=== PATIENT | male | born 1940 | race Caucasian/White ===

== ENCOUNTER 2020-10-07 08:42 | Outpatient (REF) | payer MEDICARE, OTHER, SELFPAY | END 2020-10-07 08:43 | disposition home or self-care (01) | LOC: HO.LAB 08:42 | PROVIDERS: Visit Provider Internal Medicine | DX: Z20.828 Contact with and (suspected) exposure to other viral communicable diseases (principal) | CPT/HCPCS: C9803; U0003 ==

== ENCOUNTER → 2020-11-27 09:58 | Outpatient (BNVA) | payer MEDICARE, OTHER, SELFPAY | PROVIDERS: PCP Internal Medicine; Visit Provider Hospitalist | DX: J44.9 Chronic obstructive pulmonary disease, unspecified (principal); R25.2 Cramp and spasm; R06.00 Dyspnea, unspecified | CPT/HCPCS: 99212 ==

== ENCOUNTER 2020-12-07 07:22 | Outpatient (REF) | payer MEDICARE, OTHER, SELFPAY ==
--- NOTE | 2020-12-07 07:25 | CT_ITS ---
EXAMINATION: CT CHEST WITHOUT CONTRAST CLINICAL INFORMATION: COPD COMPARISON: Previous chest x-ray June 2019 TECHNIQUE: Multidetector volumetric CT imaging of the chest was done. Axial MIP volume rendering provided. Sagittal and coronal reformatted images were obtained. This CT examination was performed using dose optimization techniques as appropriate, variously including the following: *Automated exposure control *Adjustment of mA and/or kV according to patient size (this includes techniques or standardized protocols for targeted exams where dose is matched to indication/reason for exam; i.e. extremities or head) *Use of iterative reconstruction technique DLP: 177 mGy-cm FINDINGS: LUNGS: Right There is a 3 mm right upper lobe nodule axial image 80 series 11. There are clustered small peribronchial 1 to 2 mm nodules in the right upper, right middle and right lower lobes or tree-in-bud appearance suggestive of airways disease. Largest pulmonary nodules are seen in the right middle lobe for example axial image 138 series 3. There is a 3 mm right lower lobe nodule axial image 133 series 11. Left: There is a 2 mm left upper lobe nodule axial image 55 series 11. There are clustered peribronchial 1 to 2 mm left upper lobe nodules or tree-in-bud suggestive of airways disease. No endobronchial or endotracheal lesion is seen. The there is increased AP dimension of the trachea, increased retrosternal airspace and flattening of the diaphragms suggestive of COPD. There is mild biapical pleural and parenchymal scarring, MEDIASTINUM: The visualized thyroid gland is unremarkable. There are small mediastinal lymph nodes. No enlarged lymph nodes are seen. The heart does not appear enlarged. There is mild coronary artery calcification. There is no pericardial effusion. PLEURA: There is no pleural effusion. No pleural mass or thickening. AXILLA: No lymphadenopathy. UPPER ABDOMEN: The liver is low in attenuation suggestive of fatty infiltration. OSSEOUS STRUCTURES: There are degenerative changes of the spine. CT/CT chest wo con IMPRESSION: COPD. Small clustered peribronchial nodules or tree-in-bud appearance suggestive of airways disease. There are several separate bilateral pulmonary nodules, largest measuring 3 mm. Mild coronary artery calcification. Fatty liver.
== END 2020-12-07 07:23 | disposition home or self-care (01) ==
LOC: HO.CT 07:22
PROVIDERS: Visit Provider Hospitalist
DX: J44.9 Chronic obstructive pulmonary disease, unspecified (principal); R06.00 Dyspnea, unspecified; C61 Malignant neoplasm of prostate
CPT/HCPCS: 71250

== ENCOUNTER → 2020-12-25 13:26 | Outpatient (BNVA) | payer MEDICARE, OTHER, SELFPAY | PROVIDERS: PCP Internal Medicine; Visit Provider Hospitalist | DX: Z13.89 Encounter for screening for other disorder (principal) | CPT/HCPCS: Q3014 ==

== ENCOUNTER → 2021-06-24 09:41 | Outpatient (BNVA) | payer MEDICARE, OTHER, SELFPAY | PROVIDERS: PCP Internal Medicine; Visit Provider Hospitalist | DX: R06.00 Dyspnea, unspecified (principal); J41.0 Simple chronic bronchitis; R91.8 Other nonspecific abnormal finding of lung field | CPT/HCPCS: 99212 ==

== ENCOUNTER 2021-12-16 07:21 | Outpatient (REF) | payer MEDICARE, OTHER, SELFPAY ==
--- NOTE | ~2021-12-16 | CT_ITS ---
EXAMINATION: CT CHEST WITHOUT CONTRAST CLINICAL INFORMATION: Pulmonary nodules. COMPARISON: CT chest 12/07/2020. TECHNIQUE: Multidetector volumetric CT imaging of the chest was done. Axial MIP volume rendering provided. Sagittal and coronal reformatted images were obtained. This CT examination was performed using dose optimization techniques as appropriate, variously including the following: *Automated exposure control *Adjustment of mA and/or kV according to patient size (this includes techniques or standardized protocols for targeted exams where dose is matched to indication/reason for exam; i.e. extremities or head) *Use of iterative reconstruction technique DLP: 166 mGy-cm FINDINGS: PRODUCTION COORDINATOR: Unremarkable. LUNGS: The lungs are well expanded without acute pneumonic process. There is a new right upper lobe 4 mm pulmonary nodule axial image 174/8, several 1 mm nodules left upper lobe axial image 165/8, a 2 mm nodule right lower lobe superior segment axial image 258/8, a 2 nodule right upper lobe axial image 261/8, a 2 mm peripheral-based nodule right upper lobe axial image 252/8, atelectatic changes lingula, tree-in-bud appearance right middle lobe peripherally-based axial image 318/8, a 3 mm nodule right lower lobe axial image 384/8, clustered 2 mm nodules right middle lobe axial image 373/8, similarly intrabronchial linear nodules left lower lobe axial image 388/8. There are punctate 1 mm calcifications seen as well. No consolidation or mass identified. MEDIASTINUM: The thyroid lobes are symmetrical and normal. The central trachea and the bronchi widely patent. Heart size and the great vessels are normal caliber. No abnormal-sized mediastinal lymph nodes or mass seen. There are trace coronary artery calcifications present. PLEURA: There is no pleural effusion. No pleural mass or thickening. AXILLA: No abnormal size inguinal lymph nodes. The chest wall is unremarkable. UPPER ABDOMEN: Visualized liver, spleen, pancreas and bilateral adrenal glands are unremarkable. There is focal calcification along the posterior gallbladder wall or radiopaque gravel. OSSEOUS STRUCTURES: No lytic or sclerotic process seen. There is mild spondylosis upper dorsal spine. CT/CT chest wo con IMPRESSION: Multiple bilateral pulmonary nodules in the range of 1-3 mm. The largest 3 mm pulmonary nodule appears stable. No abnormal mediastinal or axillary lymphadenopathy. Recommend follow-up as per Fleischner guidelines in 18-24 months. Fleischner guidelines were followed.
== END 2021-12-16 07:22 | disposition home or self-care (01) ==
LOC: HO.CT 07:21
PROVIDERS: Visit Provider Hospitalist
DX: R91.8 Other nonspecific abnormal finding of lung field (principal)
CPT/HCPCS: 71250

== ENCOUNTER → 2021-12-28 10:08 | Outpatient (BNVA) | payer MEDICARE, OTHER, SELFPAY | PROVIDERS: PCP Internal Medicine; Visit Provider Hospitalist | DX: J41.0 Simple chronic bronchitis (principal); R91.8 Other nonspecific abnormal finding of lung field; R06.00 Dyspnea, unspecified | CPT/HCPCS: 99212 ==

== ENCOUNTER 2022-12-13 11:37 | Outpatient (REF) | payer SELFPAY | END 2022-12-13 11:38 | disposition home or self-care (01) | LOC: HO.HAP 11:37 | PROVIDERS: Visit Provider Internal Medicine | DX: Z46.1 Encounter for fitting and adjustment of hearing aid (principal); H90.3 Sensorineural hearing loss, bilateral | CPT/HCPCS: 92593 ==

== ENCOUNTER → 2022-12-27 10:29 | Outpatient (BNVA) | payer MEDICARE, OTHER, SELFPAY | PROVIDERS: PCP Internal Medicine; Visit Provider Hospitalist | DX: J41.0 Simple chronic bronchitis (principal); R91.8 Other nonspecific abnormal finding of lung field; R06.00 Dyspnea, unspecified | CPT/HCPCS: 99212 ==

== ENCOUNTER 2023-07-12 07:22 | Outpatient (REF) | payer MEDICARE, OTHER, SELFPAY ==
--- NOTE | ~2023-07-12 | CT_ITS ---
EXAMINATION: CT CHEST WITHOUT CONTRAST CLINICAL INFORMATION: Pulmonary nodule follow-up. COMPARISON: 12/16/2021 TECHNIQUE: Multidetector volumetric CT imaging of the chest was done. Axial MIP volume rendering provided. Sagittal and coronal reformatted images were obtained. This CT examination was performed using dose optimization techniques as appropriate, variously including the following: *Automated exposure control *Adjustment of mA and/or kV according to patient size (this includes techniques or standardized protocols for targeted exams where dose is matched to indication/reason for exam; i.e. extremities or head) *Use of iterative reconstruction technique DLP: 151 mGy-cm FINDINGS: LUNGS AND PLEURA: Trachea and central airways are unremarkable. Mild centrilobular and paraseptal emphysema. Small scattered foci of mucous plugging of multiple bronchi are present, including within some of the peripheral airways within the lingula. Again noted are old micronodular opacities. A right upper lobe nodule described as new, 0.4 cm, on prior exam has subsequently resolved. A mucous plug or nodule in the lateral right lower lobe that measures up to 0.4 cm maximum dimension is stable compared to prior exams including 12/07/2020 (417, series 5). No new nodule. Also, no suspicious pulmonary nodule or mass. Based on Fleischner Society guidelines, no chest CT imaging follow-up is recommended. No pleural effusion or pneumothorax. CARDIOVASCULAR: The heart size is normal. No pericardial effusion. Pulmonary arteries are normal in size. There is atherosclerosis of the thoracic aorta without aneurysm. CORONARY ARTERY CALCIFICATION: Moderate coronary artery atherosclerotic calcification is present. MEDIASTINUM AND LOWER NECK: No mediastinal mass. The esophagus and thyroid gland are unremarkable. LYMPHATICS: No pathologic sized lymph nodes. UPPER ABDOMEN: Unremarkable. SKELETAL AND CHEST WALL: No suspicious bone lesions. Mild and moderate multilevel discovertebral degenerative change of the visualized cervical and thoracic spine. There is a focus of calcium deposition within region of infraspinatus tendon of the right shoulder. CT/CT chest wo IV con IMPRESSION: * Mild pulmonary emphysema. * Small scattered foci of mucous plugging, sequela of airway inflammation. No interval development of a suspicious lung nodule, mass or lymphadenopathy. * Atherosclerosis of coronary arteries and thoracic aorta without aortic aneurysm.
== END 2023-07-12 07:23 | disposition home or self-care (01) ==
LOC: HO.CT 07:22
PROVIDERS: PCP Internal Medicine; Visit Provider Hospitalist
DX: R91.8 Other nonspecific abnormal finding of lung field (principal)
CPT/HCPCS: 71250

== ENCOUNTER 2023-07-21 11:11 | Outpatient (REF) | payer SELFPAY ==
--- NOTE | 2023-07-21 11:37 | MHC.AU.HA3 ---
Hearing Instrument Follow-Up- Binaural Date of Visit: 07/21/23 Right Ear: John, Model, Color, Serial Number: Oticon OPN S1 miniRITE-R SN: [id number] Color: Silver Johnson Appointment Coordinator Repair Warranty: 08/08/2023 Appointment Coordinator Loss and Damage Warranty: 08/08/2023 Battery Size: Rechargeable Racing Car Driver/Slim Tube: 3/85 Earmold/Dome/CShell/SlimTip:8mm single gonzalez domes (no retention tail) Type of Wax Guard: miniFit ProWax Dispensed By: [employer] Date of Fittin Left Ear: John, Model, Color, Serial Number: Oticon OPN S1 miniRITE-R SN: [id number] Color: Silver Johnson Appointment Coordinator Repair Warranty: 08/08/2023 Appointment Coordinator Loss and Damage Warranty: 08/08/2023 Battery Size: Rechargeable Racing Car Driver/Slim Tube: 3/85 Earmold/Dome/CShell/SlimTip: 8mm single gonzalez domes (no retention tail) Type of Wax Guard: miniFit ProWax Dispensed By: [employer] Date of Fittin Follow-Up Summary: Replaced rechargeable batteries. Read programming into [email or web address] and recorded new rechargeable battery serial numbers and replacement date. [email or web address] now reading that batteries are in good health (prior to changing, noted poor health of batteries). Also cleaned hearing aids. Vacuumed microphones. Replaced domes and wax guards. Paid $50.00 for [employer] services and $10.00 for one package of wax guards. Recommendations: Hearing instrument follow-up or maintenance as needed. Please contact our clinic with any questions or concerns. Diagnosis Code(s): Primary Diagnosis: H90.3 Bilateral Sensorineural Hearing Loss Signature: Provider: Chester Levin, [facility]
== END 2023-07-21 11:12 | disposition home or self-care (01) ==
LOC: HO.HAP 11:11
PROVIDERS: Visit Provider Internal Medicine
DX: Z46.1 Encounter for fitting and adjustment of hearing aid (principal); H90.3 Sensorineural hearing loss, bilateral
CPT/HCPCS: 92593; V5267

== ENCOUNTER 2023-09-04 13:10 | Outpatient (AMB) | payer MEDICARE, OTHER, SELFPAY ==
[2023-09-04 13:19] VITALS: PULSE 89; O2SAT 96; BMI 28.7
--- NOTE | 2023-09-04 13:19 | A.OFFVIS_ITS ---
Intake Vital Signs 09/04/23 13:19 Height 5 ft 8 in Weight 189 lb BMI 28.7 Pulse 89 Pulse Source Pulse Oximeter Pulse Oximetry (%) 96 Oxygen Delivery Method Room Air Intake Visit Reasons: COPD Consulting Practice Manager Required: No Allergies No Known Allergies [No Known Allergies*] Allergy (Verified 09/04/23 13:20) HPI HPI Comments History of Present Illness Details The patient is an 83-year-old gentleman with a known history of prostate cancer. He has been on hormonal therapy. Since he has been on therapy he has had significant issues with have flashes and other symptoms. He was noted to have elevation is in his blood pressure and had issues with urinary retention is in UTIs. Therefore, he was placed on other medications. Since he was on the newer medications he started developing worsening have flushes but also worsening shortness of breath and at times coughing wheezing. Symptoms continue worsening he was evaluated in the ER. There he was diagnosed with bronchitis. In the meantime he tried on multiple inhalers, although, he does not remember the names. Did have pulmonary function studies which we reviewed in the office. It appears that he has a reversible obstruction although physiologically speaking the even the post bronchodilator flow still appear obstructed. 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 We will treated the same way. He has been also having some muscle spasms that have been moderate in severity. He has tried medications for the but no significant improvement. He feels that is related to the therapy for the prostate cancer. I did think we have to be careful with beta agonist because sick it worsen muscle spasms as well as it shifts the potassium from the blood to the intracellular level. 07/24/2020 The patient is here for pulmonary follow-up visit. He still complaining of some dyspnea on exertion. He is also getting the hot flashes because of the hormonal therapy he received for the prostate cancer. He has been getting also with some other urinary issues. The Symbicort was very effective for him. He is also concerned about the idea of using steroids. On examination he still having some wheezing. We did request a spirometry in the office which demonstrated no evidence of any obstructive ventilatory defect. I do think that he benefits from a bronchodilator. I will prescribe him Anoro and explained to him that he would uses once a day and does not have any steroids which is happy about. 11/27/2020 the patient is here for pulmonary follow-up visit. He still complaining of similar instances where he develops shortness of breath. Moderate severity. Associated with sweating. We tried multiple inhalers but do not helpful. Most of the beta agonist resulting significant cramping and he cannot tolerate them. We did talk about considering a muscarinic antagonist by itself which may be helpful. We know he has COPD based on his pulmonary function studies. However, he also carries a diagnosis of prostate cancer. In view of his ongoing symptoms and not getting enough response to the inhalers and no significant findings on x-rays and or on pulmonary function studies I will request a CT scan of the chest to better evaluate for any other ongoing lung parenchymal issue that may be explaining his significant shortness of breath. Again with this history of prostate cancer need to consider metastatic disease. 12/27/2022 the patient is here for [place]. Patient has been about the same. Still complaining of dyspnea on exertion. Moderate severity. He had a full cardiac workup in addition to a cardiac catheterization demonstrating some degree of coronary disease although nothing that had to be intervened on. Therefore he was placed on cardioprotective medications. He does take the Incruse daily. Sometimes he gets shortness of breath during the hot flushes although some of the time she gets shortness of breath when going up a flight of stairs. He has been using Incruse without any clear significant improvement. He has tried other inhalers in the past although he did have difficulties with adverse effects. At this time will go to go ahead and try to add Wixela to the Incruse to see if we can maximize his respiratory therapy at this time. When he returns in the fall will have him undergo pulmonary function studies. 09/04/2023 [facility] Overall the patient continues to be about the same. Still having the episodes of the hot flashes with shortness of breath and significant muscle spasms. Does not respond to respiratory inhalers. We did review his CT scan of the chest demonstrating stable pulmonary nodules and no significant changes since parenchyma. Still has a little bit of emphysema with that is not significant. She at this point the patient still has issues with a hormonal changes from his prostate cancer therapy. Will try some antispasmodic agents to see if he can help with his ease of breathing. [facility] Medical History (Updated 12/27/22 @ 20:04 by Arpan Cerna MD) Pulmonary nodules Prostate CA Dyspnea Leg cramping COPD (chronic obstructive pulmonary disease) Social History (Updated 12/28/21 @ 10:24 by DEVON Chavez) Patient Tobacco Use Status: Never used Tobacco Review of Systems Const Reports excessive sweating and Denies night sweats ENT Denies change in voice, Denies lip swelling, Denies mouth pain, Reports nasal congestion, Reports nasal discharge and Denies tongue swelling Card Denies chest pain and Reports dyspnea Resp Reports cough and Reports dyspnea GI Denies abdominal pain Musc Reports no additional complaints and Reports muscle cramps Neuro Denies Neuro-related abnormal movements Psych Denies no additional complaints Endo Reports excessive sweating Benja/Lymph Denies easy bleeding and Denies lymphadenopathy Aller/Immun Denies lip swelling and Denies tongue swelling Physical Exam Vital Signs: Last Vital Signs Pulse 89 09/04/23 13:19 Pulse Ox 96 09/04/23 13:19 Oxygen Delivery Method Room Air 09/04/23 13:19 BMI result Body Mass Index 28.7 Const General: alert Neck Neck: Yes normal visual inspection, Yes full ROM and Yes no lymphadenopathy Chest Chest palpation & inspection: normal inspection of the chest Resp Effort & Inspection: normal respiratory effort Auscultation: diminished lung sounds Cardio Rate: regular rate Rhythm: regular rhythm Heart sounds: S1 normal heart sound present and S2 normal heart sound present GI Palpation (GI): Soft to palpation and nontender Auscultation: normal bowel sounds Skin General skin exam: rashes and/or lesions noted Assessment & Plan Assessment & Plan (1) Dyspnea: Comment: Multifactorial Code(s): R06.00 - Dyspnea, unspecified Qualifiers: Dyspnea type: unspecified Qualified Code(s): R06.00 - Dyspnea, unspecified (2) COPD (chronic obstructive pulmonary disease): Code(s): J44.9 - Chronic obstructive pulmonary disease, unspecified Qualifiers: COPD type: chronic bronchitis Chronic bronchitis type: simple Qualified Code(s): J41.0 - Simple chronic bronchitis (3) Pulmonary nodules: Comment: CT scan from December 2021. Code(s): R91.8 - Other nonspecific abnormal finding of lung field Plan stopped Incruse daily stopped Wixela daily Add Baclofen BID F/U in 6-8 months Medications: New baclofen 10 mg PO BID 30 days 60 tabs 5RF Coding Level of Care Code Est Pt Level 4 (03882) Diagnoses Dyspnea, unspecified type R06.00 Dyspnea type: unspecified Simple chronic bronchitis J41.0 COPD type: chronic bronchitis Chronic bronchitis type: simple Pulmonary nodules R91.8 Time Spent (min) 16
== END 2023-09-04 13:34 | disposition home or self-care (01) ==
PROVIDERS: PCP Internal Medicine; Visit Provider Hospitalist
DX: R06.00 Dyspnea, unspecified (principal); J41.0 Simple chronic bronchitis; R91.8 Other nonspecific abnormal finding of lung field
CPT/HCPCS: 99214

== ENCOUNTER → 2023-09-04 13:10 | Outpatient (BNVA) | payer MEDICARE, OTHER, SELFPAY | PROVIDERS: PCP Internal Medicine; Visit Provider Hospitalist | DX: R06.00 Dyspnea, unspecified (principal); J41.0 Simple chronic bronchitis; R91.8 Other nonspecific abnormal finding of lung field | CPT/HCPCS: 99212 ==

== ENCOUNTER 2024-02-20 13:07 | Outpatient (AMB) | payer MEDICARE, OTHER, SELFPAY ==
--- NOTE | 2024-02-20 13:10 | A.OFFVIS_ITS ---
Intake Vital Signs 02/20/24 13:11 Height 5 ft 8 in Weight 178 lb BMI 27.1 BP 128/60 Blood Pressure Location Lt brachial Position Sitting Pulse 88 Pulse Source Pulse Oximeter Pulse Oximetry (%) 95 Oxygen Delivery Method Room Air Intake Visit Reasons: COPD Social Services Director Required: No Allergies No Known Allergies [No Known Allergies*] Allergy (Verified 02/20/24 13:13) HPI HPI Comments History of Present Illness Details The patient is an 83-year-old gentleman with a known history of prostate cancer. He has been on hormonal therapy. Since he has been on therapy he has had significant issues with have flashes and other symptoms. He was noted to have elevation is in his blood pressure and had issues with urinary retention is in UTIs. Therefore, he was placed on other medications. Since he was on the newer medications he started developing worsening have flushes but also worsening shortness of breath and at times coughing wheezing. Symptoms continue worsening he was evaluated in the ER. There he was diagnosed with bronchitis. In the meantime he tried on multiple inhalers, although, he does not remember the names. Did have pulmonary function studies which we reviewed in the office. It appears that he has a reversible obstruction although physiologically speaking the even the post bronchodilator flow still appear obstructed. 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 We will treated the same way. He has been also having some muscle spasms that have been moderate in severity. He has tried medications for the but no significant improvement. He feels that is related to the therapy for the prostate cancer. I did think we have to be careful with beta agonist because sick it worsen muscle spasms as well as it shifts the potassium from the blood to the intracellular level. 07/24/2020 The patient is here for pulmonary follow-up visit. He still complaining of some dyspnea on exertion. He is also getting the hot flashes because of the hormonal therapy he received for the prostate cancer. He has been getting also with some other urinary issues. The Symbicort was very effective for him. He is also concerned about the idea of using steroids. On examination he still having some wheezing. We did request a spirometry in the office which demonstrated no evidence of any obstructive ventilatory defect. I do think that he benefits from a bronchodilator. I will prescribe him Anoro and explained to him that he would uses once a day and does not have any steroids which is happy about. 11/27/2020 the patient is here for pulmonary follow-up visit. He still complaining of similar instances where he develops shortness of breath. Moderate severity. Associated with sweating. We tried multiple inhalers but do not helpful. Most of the beta agonist resulting significant cramping and he cannot tolerate them. We did talk about considering a muscarinic antagonist by itself which may be helpful. We know he has COPD based on his pulmonary function studies. However, he also carries a diagnosis of prostate cancer. In view of his ongoing symptoms and not getting enough response to the inhalers and no significant findings on x-rays and or on pulmonary function studies I will request a CT scan of the chest to better evaluate for any other ongoing lung parenchymal issue that may be explaining his significant shortness of breath. Again with this history of prostate cancer need to consider metastatic disease. 12/27/2022 the patient is here for a pulm onary follow-up visit. Patient has been about the same. Still complaining of dyspnea on exertion. Moderate severity. He had a full cardiac workup in addition to a cardiac catheterization demonstrating some degree of coronary disease although nothing that had to be intervened on. Therefore he was placed on cardioprotective medications. He does take the Incruse daily. Sometimes he gets shortness of breath during the hot flushes although some of the time she gets shortness of breath when going up a flight of stairs. He has been using Incruse without any clear significant improvement. He has tried other inhalers in the past although he did have difficulties with adverse effects. At this time will go to go ahead and try to add Wixela to the Incruse to see if we can maximize his respiratory therapy at this time. When he returns in the fall will have him undergo pulmonary function studies. 09/04/2023 the patient is here for a pul monary follow-up visit. Overall the patient continues to be about the same. Still having the episodes of the hot flashes with shortness of breath and significant muscle spasms. Does not respond to respiratory inhalers. We did review his CT scan of the chest demonstrating stable pulmonary nodules and no significant changes since par enchyma. Still has a little bit of emphysema with that is not significant. She at this point the patient still has issues with a hormonal changes from his prostate cancer therapy. Will try some antispasmodic agents to see if he can help with his ease of breathing. 02/20/2024 the patient is here for a pulchase pelayo follow-up visit. Overall he is doing about the same. He did try the baclofen but is not helpful for the most spasms. He still having episodic shortness of breath. He went back to using Wixela as he found that it was helpful. Sometimes he does have episodes of shortness breath. I did offer him a rescue inhaler but he opted on not using 1 at this time. He will call if he feels like it is necessary. For now he will continue using the Wixela. He knows to rinse his mouth well. The patient did go to an urgent Care once or twice over the last 6 months because of bronchitis. He was given a course of antibiotics for a lower respiratory infection a 1 point. The patient had a chest x-ray but I do not have those films available. Patient did have a scan back in the summer of 2022 which we personally reviewed demonstrating some mucus plugging and some minimal emphysematous changes. [facility] Medical History (Updated 12/27/22 @ 20:04 by Arpan Cerna MD) Pulmonary nodules Prostate CA Dyspnea Leg cramping COPD (chronic obstructive pulmonary disease) Social History (Updated 12/28/21 @ 10:24 by DEVON Chavez) Patient Tobacco Use Status: Never used Tobacco Review of Systems Const Reports excessive sweating and Denies night sweats ENT Denies change in voice, Denies lip swelling, Denies mouth pain, Reports nasal congestion, Reports nasal discharge and Denies tongue swelling Card Denies chest pain and Reports dyspnea Resp Reports cough and Reports dyspnea GI Denies abdominal pain Musc Reports no additional complaints and Reports muscle cramps Neuro Denies Neuro-related abnormal movements Psych Denies no additional complaints Endo Reports excessive sweating Benja/Lymph Denies easy bleeding and Denies lymphadenopathy Aller/Immun Denies lip swelling and Denies tongue swelling Physical Exam Vital Signs: Last Vital Signs Pulse 88 02/20/24 13:11 BP 128/60 02/20/24 13:11 Pulse Ox 95 02/20/24 13:11 Oxygen Delivery Method Room Air 02/20/24 13:11 BMI result Body Mass Index 27.1 Const General: alert Neck Neck: Yes normal visual inspection, Yes full ROM and Yes no lymphadenopathy Chest Chest palpation & inspection: normal inspection of the chest Resp Effort & Inspection: normal respiratory effort Auscultation: diminished lung sounds Cardio Rate: regular rate Rhythm: regular rhythm Heart sounds: S1 normal heart sound present and S2 normal heart sound present GI Palpation (GI): Soft to palpation and nontender Auscultation: normal bowel sounds Skin General skin exam: rashes and/or lesions noted Assessment & Plan Assessment & Plan (1) Dyspnea: Comment: Multifactorial Code(s): R06.00 - Dyspnea, unspecified Qualifiers: Dyspnea type: unspecified Qualified Code(s): R06.00 - Dyspnea, unspecified (2) COPD (chronic obstructive pulmonary disease): Code(s): J44.9 - Chronic obstructive pulmonary disease, unspecified Qualifiers: COPD type: chronic bronchitis Chronic bronchitis type: simple Qu alified Code(s): J41.0 - Simple chronic bronchitis (3) Pulmonary nodules: Comment: CT scan from December 2021. Code(s): R91.8 - Other nonspecific abnormal finding of lung field Plan continue Wixela daily consider NELSON as needed stopped Baclofen BID F/U in 12 months Coding Level of Care Code Est Pt Level 4 (64707) Diagnoses Dyspnea, unspecified type R06.00 Dyspnea type: unspecified Simple chronic bronchitis J41.0 COPD type: chronic bronchitis Chronic bronchitis type: simple Pulmonary nodules R91.8 Time Spent (min) 17
[2024-02-20 13:11] VITALS: BP 128/60; PULSE 88; O2SAT 95; BMI 27.1
== END 2024-02-20 13:43 | disposition home or self-care (01) ==
PROVIDERS: PCP Internal Medicine; Visit Provider Hospitalist
DX: R06.00 Dyspnea, unspecified (principal); J41.0 Simple chronic bronchitis; R91.8 Other nonspecific abnormal finding of lung field
CPT/HCPCS: 99214

== ENCOUNTER → 2024-02-20 13:07 | Outpatient (BNVA) | payer MEDICARE, OTHER, SELFPAY | PROVIDERS: PCP Internal Medicine; Visit Provider Hospitalist | DX: J41.0 Simple chronic bronchitis (principal); R06.00 Dyspnea, unspecified; R91.8 Other nonspecific abnormal finding of lung field | CPT/HCPCS: 99212 ==

== ENCOUNTER 2024-10-08 08:26 | Emergency (ER) | payer MEDICARE, OTHER, SELFPAY ==
--- NOTE | ~2024-10-08 | XR_ITS ---
EXAMINATION: XR CHEST CLINICAL INFORMATION: Chest pain. COMPARISON: CT scan chest of 07/12/2023, x-ray chest of 07/09/2019. TECHNIQUE: Frontal view of the chest was obtained. FINDINGS: There is no gross pneumothorax. Heart size is normal. Degenerative changes in the thoracic spine. Mild asymmetric elevation of the left lung base. No new focal consolidation. No pleural effusion. XR/XR chest 1V IMPRESSION: Mild asymmetric elevation of the left lung base. No new focal consolidation. This study was presented today October 08, 2024 for interpretation. Stat results provided at this time as requested by referring provider. Electronically signed by: Marian Kay MD 10/08/2024 12:56 PM EST
--- NOTE | 2024-10-08 08:29 | ECG_ITS ---
Test Reason : chest pain Blood Pressure : / mmHG Vent. Rate : 083 BPM Atrial Rate : 083 BPM P-R Int : 162 ms QRS Dur : 086 ms QT Int : 358 ms P-R-T Axes : 039 007 054 degrees QTc Int : 420 ms Normal sinus rhythm Normal ECG When compared with ECG of 09-JUL-2019 15:27, No significant change was found Referred By: Generic ED Physician Electronically Signed By:TAMARA NOLAN
[2024-10-08 08:37] VITALS: BP 155/80; PULSE 89; RESP 16; TEMP 37; O2SAT 98; BMI 28.7
--- NOTE | 2024-10-08 09:13 | ED_ITS ---
HPI - Chest Pain General Chief Complaint: Chest Pain Stated Complaint: Chest pain Time Seen by Provider: 10/08/24 09:04 Source: patient and family ( spouse) Mode of arrival: ambulatory Limitations: no limitations History of Present Illness ED Provider: DR. George HPI narrative: 84 year male brought in with his for evaluation of left chest started last Monday. 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 Related Data Home Medications ?Medication ?Instructions ?Recorded ?Confirmed aspirin 81 mg tablet,delayed 81 mg PO DAILY 11/27/20 06/24/21 release triamterene 37.5 1 cap PO DAILY 11/27/20 06/24/21 mg-hydrochlorothiazide 25 mg capsule atorvastatin 80 mg tablet 80 mg PO 12/27/22 albuterol sulfate 90 mcg/actuation inhalation 02/20/24 aerosol inhaler Allergies Allergy/AdvReac Type Severity Reaction Status Date / Time hydrochlorothiazide Allergy Muscle Verified 10/08/24 08:39 cramps Review of Systems Review of Systems: All other systems are reviewed and are negative Constitutional: Reports as per HPI and Reports no additional constitutional complaints Eyes: Reports as per HPI and Reports no additional eye complaints Reports system reviewed and no additional complaints, except as documented Cardiovascular: Reports as per HPI and Reports no additional cardiovascular complaints Respiratory: Reports as per HPI and Reports no additional respiratory complaints Gastrointestinal: Reports as per HPI and Reports no additional gastrointestinal complaints Genitourinary: Reports no additional female genitourinary complaints Musculoskeletal: Reports no additional musculoskeletal complaints Skin/Breast: Reports system reviewed and no additional complaints, except as docu Psychiatric: Reports no additional psychiatric complaints Endocrine: Reports no additional endocrine complaints Hematologic/Lymphatic: Reports no additional hematologic/lymphatic complaints Allergic/Immunologic: Reports no additional allergic/immunologic complaints Reports system reviewed and no additional complaints, except as documented and Reports Abnormal speech present PMFSH Past Medical History Medical History Pulmonary nodules Prostate CA Dyspnea Leg cramping COPD (chronic obstructive pulmonary disease) Social History Social History Patient Tobacco Use Status: Never used Tobacco Physical Exam Vital Signs: Vital Signs: Last Vital Signs Temp 98.6 F 10/08/24 08:37 Pulse 89 10/08/24 08:37 Resp 16 10/08/24 08:37 BP 155/80 H 10/08/24 08:37 Pulse Ox 98 10/08/24 08:37 O2 Del Method Room Air 10/08/24 08:37 BMI result Body Mass Index 28.7 Vital signs have been reviewed and appear to be correct. Blood pressure elevated. Heart rate normal. Respiratory rate normal. Temperature normal. Oxygen saturation normal. Appearance: Alert. Oriented X3. No acute distress. Head: Normal external exam. Normocephalic. Atraumatic. No Rocha signs noted. No raccoon eyes noted Eyes: PERRLA. EOMI. Conjunctiva and sclera normal. Eyelids normal. ENT: TM's Normal. Pharynx normal. Uvula midline. Moist mucous membranes. No trismus noted. No drooling noted. No muffled voice noted. Neck: Normal inspection. Neck supple. FROM. No adenopathy. Thyroid Normal. No meningeal signs. No neck mass noted. CVS: Normal heart rate and rhythm. Heart sound normal. No murmurs noted. Pulses normal throughout. Respiratory: No respiratory distress. Painless inspiration. Breath sounds normal. No wheezes/rales/rhonchi noted. Chest nontender. No accessory muscle usage noted or decreased air movement noted. Abdomen: Soft and nontender. Bowel sounds normal in all 4 quadrants. No distention noted. No organomegaly noted. No visible injury noted. Back: No CVA tenderness. Full range of motion noted. Skin: Skin warm and dry. Normal skin color. Normal skin turgor. No rashes/lesions/lacerations noted. Extremities: No lower extremity edema. Extremities exhibit normal range of motion. Extremities nontender. Neuro: Oriented X 3. Cranial nerve exam: II-XII are grossly intact No motor deficit. No sensory deficit. Reflexes normal. Course Reevaluation(s) Reevaluation #1: 84-year-old male with chest pain history and physical exam is suggesting muscular pain, negative cardiac marker x2, negative D-dimer. Time: 14:00 Medical Decision Making Differential Diagnosis Differential Diagnoses: The differential diagnosis associated with the presentation includes ( ACS, pulmonary embolism, pneumonia, pneumothorax, pleural effusion, electrolyte derangement, costochondritis, chest wall muscular pain, severe anemia.) Admission/Observation Consideration of admission/observation: Escalation of care including admission/observation considered Lab Data MDM Lab Attestation statement: I reviewed the patient's lab results. Independent Interpretation I performed an independent interpretation of an: EKG ( Normal sinus rhythm at 83 beats per minutes, normal intervals, no ST-T T changes. No old EKG to compare.) and Plain X-Ray ( Chest: No acute intrathoracic pathology.) Radiology Impression Discussion of test interpretation with radiology: I have reviewed the radiologist's reading. Discharge Plan Discharge Clinical Impression: Anterior chest wall pain Patient Disposition: Home, Self-Care Instructions: Chest Wall Pain (ED) Prescriptions: No Action triamterene-hydrochlorothiazid 37.5-25 mg capsule 1 cap PO DAILY aspirin 81 mg tablet,delayed release (DR/EC) 81 mg PO DAILY atorvastatin 80 mg tablet 80 mg PO albuterol sulfate 90 mcg/actuation HFA aerosol inhaler inhalation Referrals: Emeka Arcos MD [Primary Care Provider] - Print Language: Ethiopian
[2024-10-08 09:51] LABS: MANUAL DIFF FLAG NO
[2024-10-08 09:54] LABS: Basophils Absolute Auto 0.1 X10*3/uL (0.0-0.2); Basophils Percent Auto 1.5 % (0-2); Eosinophils Absolute Auto 0.3 X10*3/uL (0.0-0.4); Eosinophils Percent Auto 5.3 % (0-4); Hematocrit 37.2 % (42.0-52.0); Hemoglobin 12.6 g/dl (14.0-18.0); Imm Gran Abs Auto 0.02 X10*3/uL (0.00-0.03); Imm Gran Pct Auto 0.3 % (0.0-0.4); Lymphocytes Absolute Auto 1.3 X10*3/uL (1.2-4.9); Lymphocytes Percent Auto 20.6 % (20-40); Mean Corpuscular HGB Conc 33.9 g/dl (31.0-36.0); Mean Corpuscular Hemoglobin 30.8 pg (27.0-33.0); Mean Platelet Volume 8.6 fL (9.4-12.4); Monocytes Absolute Auto 0.8 X10*3/uL (0.1-1.2); Monocytes Percent Auto 12.5 % (2-11); Neutrophils Absolute Auto 3.6 x10*3/uL (2.0-8.3); Neutrophils Percent Auto 59.8 % (45-73); Platelet Count 201 X10*3/uL (160-400); Red Blood Count 4.09 X10*6/uL (4.60-5.80); Red Cell Distribution Width 12.3 % (11.0-16.0); White Blood Count 6.1 X10*3/uL (4.8-10.8)
[2024-10-08 10:01] LABS: D Dimer High Sensitivity 171 NG/ML
--- NOTE | 2024-10-08 10:04 | PC.NURSE ---
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
[2024-10-08 10:08] LABS: Alanine Aminotransferase 21 U/L (0-40); Albumin Level 3.7 g/dL (3.5-5.0); Alkaline Phosphatase 74 U/L (39-117); Anion Gap 10 (12-20); Aspartate Amino Transferase 25 U/L (5-37); Bilirubin Direct 0.1 mg/dL (0.0-0.5); Bilirubin Total 0.4 mg/dL (0.0-1.0); Blood Urea Nitrogen 25 mg/dL (9-16); Calcium 8.8 mg/dL (8.4-10.2); Carbon Dioxide 25 mmol/L (22-29); Chloride 107 mmol/L (96-108); Creatinine Clr Calc Pharmacy 50.4; Estimated Glomerular Filt Rate > 60; Glucose Random 99 mg/dL (60-115); Lipase 61 U/L (8-78); Potassium 4.3 mmol/L (3.3-5.1); Sodium 138 mmol/L (135-145); Total Protein 6.2 g/dL (6.5-8.0)
[2024-10-08 10:14] LABS: B Type Natriuretic Peptide 41 pg/mL (<100)
[2024-10-08 11:36] VITALS: BP 194/85; PULSE 67; RESP 16; TEMP 36.8; O2SAT 95
[2024-10-08 13:06] LABS: Troponin-I High Sensitivity 3.6 ng/L (<3.5-35.0)
[2024-10-08 13:07] LABS: Appearance Urine Clear; Color Urine Yellow; Glucose Urine UA Negative (Negative); Leukocyte Esterase Urine Negative (Negative); Nitrite Urine Negative (Negative); PH 6.5 (5.0-9.0); Specific Gravity - Urine 1.015 (1.005-1.025); UMIC TRIGGER UACC YES; Urine Blood Small (1+) (Negative); Urine Ketones Negative (Negative); Urine Protein Negative (Neg-Trace)
[2024-10-08 13:12] LABS: Bacteria Urine None Seen (None Seen); Hyaline Casts Urine 0-2 /LPF (0-2); Squamous Epithelial Cell Urine 0-2 /HPF (0-2); WBC Urine 0-5 /HPF (0-5)
[2024-10-08 14:06] VITALS: BP 178/84; PULSE 66; RESP 16; TEMP 36.5; O2SAT 98
[2024-10-08 16:12] VITALS: BP 178/84; PULSE 66; RESP 16; TEMP 36.5; O2SAT 98
== END 2024-10-08 16:13 | disposition home or self-care (01) ==
PROVIDERS: Emergency Provider Emergency Medicine; PCP Internal Medicine
DX: R07.89 Other chest pain (principal); R06.02 Shortness of breath; Z79.899 Other long term (current) drug therapy
CPT/HCPCS: 36415; 71045; 80048; 80076; 81001; 83690; 83880; 84484; 85025; 85379; 93005; 99283; 99285

== ENCOUNTER → 2024-10-08 08:29 | Outpatient (BNV) | payer MEDICARE, OTHER, SELFPAY | PROVIDERS: Emergency Provider Emergency Medicine; PCP Internal Medicine; Visit Provider Internal Medicine | DX: R07.9 Chest pain, unspecified (principal) | CPT/HCPCS: 93010 ==

== ENCOUNTER 2025-03-04 08:38 | Outpatient (AMB) | payer MEDICARE, OTHER, SELFPAY ==
--- NOTE | 2025-03-04 08:40 | MHC.OFFVIS ---
Vital Signs 03/04/25 08:41 Height 5 ft 6 in Weight 188 lb 7.924 oz BMI 30.4 BP 130/76 Blood Pressure Location Rt brachial Position Sitting Pulse 67 Pulse Source Pulse Oximeter Pulse Oximetry (%) 96 Oxygen Delivery Method Room Air Intake Visit Reasons: copd Allergies hydrochlorothiazide Allergy (Verified 03/04/25 08:43) Muscle cramps HPI Comments Details: The patient is an 84-year-old gentleman with a known history of prostate cancer. He has been on hormonal therapy. Since he has been on therapy he has had significant issues with have flashes and other symptoms. He was noted to have elevation is in his blood pressure and had issues with urinary retention is in UTIs. Therefore, he was placed on other medications. Since he was on the newer medications he started developing worsening have flushes but also worsening shortness of breath and at times coughing wheezing. Symptoms continue worsening he was evaluated in the ER. There he was diagnosed with bronchitis. In the meantime he tried on multiple inhalers, although, he does not remember the names. Did have pulmonary function studies which we reviewed in the office. It appears that he has a reversible obstruction although physiologically speaking the even the post bronchodilator flow still appear obstructed. 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 We will treated the same way. He has been also having some muscle spasms that have been moderate in severity. He has tried medications for the but no significant improvement. He feels that is related to the therapy for the prostate cancer. I did think we have to be careful with beta agonist because sick it worsen muscle spasms as well as it shifts the potassium from the blood to the intracellular level. 02/20/2024 the patient is here for a pulmonary follow-up visit. Overall he is doing about the same. He did try the baclofen but is not helpful for the most spasms. He still having episodic shortness of breath. He went back to using Wixela as he found that it was helpful. Sometimes he does have episodes of shortness breath. I did offer him a rescue inhaler but he opted on not using 1 at this time. He will call if he feels like it is necessary. For now he will continue using the Wixela. He knows to rinse his mouth well. The patient did go to an urgent Care once or twice over the last 6 months because of bronchitis. He was given a course of antibiotics for a lower respiratory infection a 1 point. The patient had a chest x-ray but I do not have those films available. Patient did have a scan back in the summer of 2022 which we personally reviewed demonstrating some mucus plugging and some minimal emphysematous changes. 03/04/2025 the patient is here for a pulmonary follow-up visit. Overall he is doing well. He has not had to use his rescue inhaler a maintenance inhaler at this time. He continues to exercise about 45 minutes a day at least. Does not see any respiratory limitations. He does get the myalgias and he attributes it to the statin medication. Also to his hormonal therapy for prostate cancer. On exam he does have some expiratory wheezing and prolonged expiratory phase. I did encourage him to use his maintenance inhaler at least once a day in the morning to make sure that he maintains good airway capacity. His last imaging study was a chest x-ray had back in 2023 which I personally reviewed with him. He had gone to the ER with chest pain. His workup was negative in the x-ray personally by me appeared to be normal with slight elevation of the left hemidiaphragm. Therefore, follow-up in a year's time. He will continue to use his maintenance inhaler once a day in the morning. If he has any issues prior to the next visit he will call for an earlier assessment. [facility] Medical History Pulmonary nodules Prostate CA Dyspnea Leg cramping COPD (chronic obstructive pulmonary disease) Social History (Updated 03/04/25 @ 08:43 by Yoon Pascal CMA) Alcohol intake: current Alcohol intake frequency: holidays/special occasions only Patient Tobacco Use Status: Former Tobacco user Review of Systems Const Reports excessive sweating and Denies night sweats ENT Denies change in voice, Denies lip swelling, Denies mouth pain, Reports nasal congestion, Reports nasal discharge and Denies tongue swelling Card Denies chest pain and Reports dyspnea Resp Reports cough and Reports dyspnea GI Denies abdominal pain Musc Reports no additional complaints and Reports muscle cramps Neuro Denies Neuro-related abnormal movements Psych Denies no additional complaints Endo Reports excessive sweating Benja/Lymph Denies easy bleeding and Denies lymphadenopathy Aller/Immun Denies lip swelling and Denies tongue swelling Physical Exam Vital Signs: Last Vital Signs Pulse 67 03/04/25 08:41 BP 130/76 03/04/25 08:41 Pulse Ox 96 03/04/25 08:41 Oxygen Delivery Method Room Air 03/04/25 08:41 BMI result Body Mass Index 30.4 Const General: alert Neck Neck: Yes normal visual inspection, Yes full ROM and Yes no lymphadenopathy Chest Chest palpation & inspection: normal inspection of the chest Resp Effort & Inspection: normal respiratory effort Auscultation: diminished lung sounds Cardio Rate: regular rate Rhythm: regular rhythm Heart sounds: S1 normal heart sound present and S2 normal heart sound present GI Palpation (GI): Soft to palpation and nontender Auscultation: normal bowel sounds Skin General skin exam: rashes and/or lesions noted Assessment & Plan Assessment & Plan (1) Dyspnea: Comment: Multifactorial Code(s): R06.00 - Dyspnea, unspecified Category: Medical Qualifiers: Dyspnea type: unspecified Qualified Code(s): R06.00 - Dyspnea, unspecified (2) COPD (chronic obstructive pulmonary disease): Code(s): J44.9 - Chronic obstructive pulmonary disease, unspecified Category: Medical Qualifiers: COPD type: chronic bronchitis Chronic bronchitis type: simple Qualified Code(s): J41.0 - Simple chronic bronchitis (3) Pulmonary nodules: Comment: CT scan from December 2021. Code(s): R91.8 - Other nonspecific abnormal finding of lung field Category: Medical Plan continue Wixela daily consider NELSON as needed F/U in 12 months Coding Level of Care Code Est Pt Level 4 (42787) Diagnoses Dyspnea, unspecified type R06.00 Dyspnea type: unspecified Simple chronic bronchitis J41.0 COPD type: chronic bronchitis Chronic bronchitis type: simple Pulmonary nodules R91.8 Time Spent (min) 16
[2025-03-04 08:41] VITALS: BP 130/76; PULSE 67; O2SAT 96; BMI 30.4
== END 2025-03-04 09:12 | disposition home or self-care (01) ==
PROVIDERS: PCP Internal Medicine; Visit Provider Hospitalist
DX: R06.00 Dyspnea, unspecified (principal); J41.0 Simple chronic bronchitis; R91.8 Other nonspecific abnormal finding of lung field
CPT/HCPCS: 99214

== ENCOUNTER → 2025-03-04 08:38 | Outpatient (BNVA) | payer MEDICARE, OTHER, SELFPAY | PROVIDERS: PCP Internal Medicine; Visit Provider Hospitalist | DX: R06.00 Dyspnea, unspecified (principal); J41.0 Simple chronic bronchitis; R91.8 Other nonspecific abnormal finding of lung field | CPT/HCPCS: 99212 ==